=== PATIENT | male | born 2000 | race African-American/Black ===

== ENCOUNTER 2019-10-31 18:20 | Emergency (ER) | payer SELFPAY ==
[~2019-10-31] VITALS: Ht 167.6 cm; Wt 78.2 kg
[2019-10-31 18:59] VITALS: BP 127/71; TEMP 99.4
[2019-10-31] MEDS ORDERED: ATARAX 25MG25 MG/TAB PO (21:19)
[2019-10-31 21:26] VITALS: PULSE 57
== END 2019-10-31 21:26 | disposition home or self-care (01) ==
LOC: COL.ER 18:20
DX: R45.1 Restlessness and agitation (principal)

== ENCOUNTER 2019-11-11 13:47 | Emergency (ER) | payer SELFPAY ==
[~2019-11-11] VITALS: Ht 167.6 cm; Wt 77.3 kg
[~2019-11-11 13:47] MED LIST: ATARAX 25MG25 MG/TAB PO
[2019-11-11 14:05] VITALS: TEMP 98.6
[2019-11-11 15:08] LABS: TRICYCLIC ANTIDEPRESS URINE NEGATIVE
[2019-11-11 15:31] LABS: ALANINE AMINOTRANSFERASE 16 U/L (21-72); ALBUMIN 5.4 gm/dL (3.5-5.0); ALKALINE PHOSPHATASE 104 U/L (50-136); ANION GAP 14 mmol/L (7-16); AST,SGOT 38 U/L (15-37); BILIRUBIN,TOTAL 2.3 mg/dL (0.0-1.0); BLOOD UREA NITROGEN 11 mg/dL (9-20); CALCIUM 10.1 mg/dL (8.4-10.2); CARBON DIOXIDE 25 mmol/L (22-30); CHLORIDE 101 mmol/L (98-107); CREATININE, serum 0.95 (0.66-1.25); GLUCOSE 85 mg/dL (74-106); SODIUM 141 mmol/L (137-145); TOTAL PROTEIN 9.3 gm/dL (6.4-8.2)
[2019-11-11 15:48] LABS: ACETAMINOPHEN < 10 ug/mL (10-30); ALCOHOL(ethanol),MEDICAL < 10 mg/dL; SALICYLATE < 1.0 mg/dL
[2019-11-11 15:51] LABS: BASO % 0.3 % (0.0-2.0); EOS % 0.2 % (0-4.0); GRAN # 3.9 (1.4-6.5); GRAN % 64.3 % (42.2-75.2); HEMATOCRIT 50.4 % (36.0-47.0); HEMOGLOBIN 16.8 g/dl (12.5-16.1); LYMPH # 1.7 (1.2-3.4); LYMPH % 27.9 % (20.0-51.0); MEAN CELL VOLUME 83 fl (80.0-95.0); MEAN CORPUSCULAR HEMOGLOBIN 28 pg (26.0-32.0); MEAN CORPUSCULAR HGB CONC 33 g/dl (33.0-37.0); MEAN PLATELET VOLUME 12.5 fl (7.4-10.4); MONO # 0.4 (0.1-0.6); MONO % 7.1 % (1.7-9.3); PLATELET COUNT 228 K/mm3 (130-400); REDCELL DISTRIBUTION WIDTH-CV 11.5 % (11.5-14.5)
[2019-11-11 16:01] LABS: TSH w REFLEX 0.569 uIU/mL (0.465-4.680)
[2019-11-11 22:04] VITALS: BP 125/78; PULSE 109
== END 2019-11-11 22:08 | disposition home or self-care (01) ==
LOC: COL.ER 13:47
PROVIDERS: Physician Assistant
DX: F32.9 Major depressive disorder, single episode, unspecified (principal); R45.851 Suicidal ideations; F17.210 Nicotine dependence, cigarettes, uncomplicated